=== PATIENT | female | born 1965 | race Caucasian/White ===

== ENCOUNTER 2024-05-28 09:57 | Outpatient (AMB) | payer BC, SELFPAY ==
--- NOTE | 2024-05-28 10:14 | MHC.OFFVIS ---
Vital Signs 05/28/24 10:16 Height 5 ft 3 in Weight 119 lb BMI 21.1 BP 138/74 Blood Pressure Location Lt brachial Position Sitting Respiration 16 Pulse 95 Pulse Source Pulse Oximeter Pulse Oximetry (%) 97 Oxygen Delivery Method Room Air Intake Visit Reasons: Cervical Radiculopathy Allergies No Known Allergies Allergy (Verified 05/28/24 10:17) Medication List - Last Reconciled 05/28/24 by Kitty Leung LPN carisoprodol 250 mg PO QID PRN levothyroxine 100 mcg PO DAILY trazodone 150 mg PO BEDTIME upadacitinib ER (Rinvoq) 15 mg PO DAILY HPI HPI Cervical Radiculopathy: Details: History of Present Illness The patient is a 58-year-old female presenting with cervical radiculopathy and pain. She reports a 2-year history of pain originating in her left neck, extending to the shoulder, and radiating towards the left occipital region and anterior chest. This pain began spontaneously without an apparent inciting event. It is described as an aching, stabbing, burning sensation, rated between 5 to 8/10 in intensity, and is exacerbated at night. The patient has experienced associated numbness and tingling in the left upper extremity, exacerbations of sharp dwumfcea-fnqvo-imvl sensations, and significant weakness in the left arm, leading to frequent dropping of items. She has undergone an MRI which revealed a large C6-7 disc herniation with compression of the C6 nerve root and has a history of problematic symptoms on the right that were once less severe. Treatment attempts include ecpm-ikd-ulvafjz medications, physical therapy, and a cortisone injection two years prior that provided temporary relief. 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 Pain Description - Aching pain in left neck extending to left shoulder and left occipital region - Burning and stabbing quality, with radiating sharp yhvcnera-rrfpw-vfkl sensations - Pain intensified at night and during activities involving neck and arm movement - Intensity rated 5 to 8/10 - Associated with numbness and tingling in left upper extremity - Weakness in left arm, resulting in dropping objects - Pain exacerbated by deep breathing and certain movements - Relief previously noticed with a cortisone injection two years ago Physical Exam - Musculoskeletal- Weakness noted in left upper extremity, specifically 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 - Limitation in cervical range of motion Results - MRI: Large C6-7 disc herniation with compression of C6 nerve root on the left side Pain Management - Affect: Pain causing significant employment and functional impairment, affecting psychological wellbeing - Analgesia: Currently taking Carisoprodol 250 mg, reporting mid-level pain score - Adverse Effects: Reported fatigue and discomfort from some medications, and past adverse reactions to gabapentin - Activities of Daily Living: Pain affects work performance and ability to perform daily tasks - Aberrant Drug Related Behaviors: Prefers not using prescription medications extensively due to previous family experiences [facility] Medical History (Updated 05/30/24 @ 12:05 by Facundo De Paz MD) Asthma Hypothyroidism Psoriasis Surgical History (Updated 05/30/24 @ 12:05 by Facundo De Paz MD) Status post ablation operation for arrhythmia Physical Exam Vital Signs: Last Vital Signs Pulse 95 05/28/24 10:16 Resp 16 05/28/24 10:16 BP 138/74 05/28/24 10:16 Pulse Ox 97 05/28/24 10:16 Oxygen Delivery Method Room Air 05/28/24 10:16 BMI result Body Mass Index 21.1 Assessment & Plan Assessment & Plan (1) Cervical radiculopathy: Code(s): M54.12 - Radiculopathy, cervical region Category: Medical Plan Plan - Interlaminar cervical epidural steroid injection, left parasagittal C6-7 - Refer to spine surgery for evaluation of potential cervical discectomy and/or fusion - Encourage continuation of home exercise program focusing on neck stretching and strengthening - Educate on self-directed C6-7 disc herniation exercises through online resources - Prescribe a one-time opioid prescription following protocol guidelines after turnover of Carisoprodol to the dispensing pharmacist Patient was informed and verbally consented to the use of an ambient scribe for clinic note documentation during this visit. Discussion Notes I discussed with the patient the diagnosis of cervical radiculopathy due to C6-7 disc herniation and associated nerve root compression. We reviewed the immediate plan for cervical epidural steroid injection to manage her symptoms and the potential need for surgical intervention, such as discectomy or fusion, if conservative treatment proves ineffective. We considered the risks and benefits of each option, emphasizing that surgery might be necessary for long-term relief if conservative treatment fails. I outlined non-invasive management, including home exercises to improve symptoms. The patient understands the course of action, including the risks of combining current medications with any new prescriptions, and agreed to the planned interventions. Patient Instructions - Undergo cervical epidural steroid injection on scheduled date - Refer to and consult with a spine surgeon to consider surgical options for relief - Continue recommended home exercises for stretching and strengthening - Search online for C6-7 disc herniation exercises and incorporate them into daily routine - Follow prescription guidelines carefully and bring any unused Carisoprodol to the pharmacy - Monitor symptoms and return if pain or weakness worsens - Take a day off after the injection to rest if necessary - Use pain management techniques such as cold/heat therapy as needed Coding Level of Care Code New Pt Level 4 (71232) Diagnoses Cervical radiculopathy M54.12
[2024-05-28 10:16] VITALS: BP 138/74; PULSE 95; RESP 16; O2SAT 97; BMI 21.1
== END 2024-05-28 11:01 | disposition home or self-care (01) ==
PROVIDERS: PCP Hospitalist; Referring Provider Psychiatry & Neurology Neurology; Visit Provider Internal Medicine
DX: M54.12 Radiculopathy, cervical region (principal)
CPT/HCPCS: 99204

== ENCOUNTER 2024-06-21 07:33 | Outpatient (REF) | payer BC, SELFPAY ==
--- NOTE | ~2024-06-21 | FL_ITS ---
EXAMINATION: FLUOROSCOPY GUIDANCE FOR NEEDLE PLACEMENT CLINICAL INFORMATION: M54.12 - Radiculopathy, cervical region COMPARISON: None available. TECHNIQUE: Fluoroscopic guidance for treatment. 2 images obtained in the region of the cervical spine. FINDINGS: Radiopaque instrument and radiopaque material in the cervical spine for fluoroscopy guidance. FLUOROSCOPY TIME: 0.1 minutes. DOSE AREA PRODUCT: 0.507 uGy-m2 (microgray-meter squared) FL/FL guidance in treatment room IMPRESSION: Nondiagnostic fluoroscopy guidance for treatment planning in the cervical spine. Please refer to the procedure note. Electronically signed by: Wesley Linares MD 06/21/2024 11:26 AM HARVEY
--- OUTSIDE RECORDS SUMMARY | 2024-06-21 07:36 | XMS_ITS | Patient Health Record ---
Author Organization [facility] Address [address] [place] [address] Care Team Providers Care Nuclear Medicine Technologist Name Role Phone TORRI CHAMPION Primary Care Provider [phone] Allergies Allergen (clinical drug ingredient) Drug/Non Drug Allergy documented on EMR Reaction Allergy Type Onset Date Status Tetanus Toxoids siezure Drug Allergy A ctive COVID-19 (mRNA) Vaccine Lung inflammation Drug Allergy Active Reason For Referral No Information Medications Medication SIG (Take, Route, Frequency, Duration) Notes Start Date End Date Status traZODone HCl 150 MG 1 tablet at bedtime Orally Once a day for 90 days Active Levothyroxine Sodium 25 MCG 1 tablet in the morning on an empty stomach Orally Once a day for 90 days Active Rinvoq 15 MG 1 tablet Orally Once a day Active Problems Problem Type SNOMED Code ICD Code Onset Dates Problem Status W/U Status Risk Notes Problem Hypothyroidism (50910224) Hypothyroidism, unspecified (E03.9) Active confirmed Problem Insomnia (195932783) Insomnia, unspecified (G47.00) Active confirmed Problem Psoriasis (5791199) Psoriasis, unspecified (L40.9) Active confirmed Problem Cervical radiculopathy (96002958) Radiculopathy, cervical region (M54.12) Active confirmed Problem 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) (6751171410) 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 Vital Signs Heart Rate 76 /min 05/30/2024 Temperature 97.4 degrees Fahrenheit 05/30/2024 Blood pressure diastolic 70 mm Hg 05/30/2024 Oximetry 95 % 05/30/2024 Height 5'3'' in 05/30/2024 Blood pressure systolic 110 mm Hg 05/30/2024 Weight 121.5 lbs 05/30/2024 BMI 21.52 kg/m2 05/30/2024 Encounters Encounter Location Date Provider Diagnosis [facility] [address] [place] [address] 05/30/2024 TORRI CHAMPION Psoriasis, unspecifi ed L40.9 ; Hypothyroidism, unspecified E03.9 ; Insomnia, unspecified G47.00 ; Encounter for screening for cardiovascular disorders Z13.6 ; Weight loss observed on examination R63.4 ; Other fatigue R53.83 ; Radiculopathy, cervical region M54.12 and Hixl-WDVMM-61 syndrome B94.8 Assessments Encounter Date Diagnosis (ICD Code) Assessment Notes Treatment Notes Treatment Clinical Notes Section Notes 05/30/2024 Hypothyroidism, unspecified (ICD-10 - E03.9) Elizabeth is 58 years old pleasant lady with psoriasis, hypothyroidism, insomnia, cervical radiculopathy and 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 Plan is as follows Hypothyroidism. Continue current regimen and check TCH test you for Insomnia. She is on trazodone 150 mg daily and she is doing fine Psoriasis/psoria tic arthritis. 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 It can be deconditioning, thyroid dysfunction, worsening of psoriasis, anxiety/depressi on, nutritional deficiencies, anemia. We will check inflammatory markers meanwhile she can take Tylenol arthritis as needed. Screening blood work ordered. She is up to date on a specific screening. 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 Plan is as follows Hypothyroidism. Continue current regimen and check TCH test you for Insomnia. She is on trazodone 150 mg daily and she is doing fine Psoriasis/psoria tic arthritis. 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 It can be deconditioning, thyroid dysfunction, worsening of psoriasis, anxiety/depressi on, nutritional deficiencies, anemia. We will check inflammatory markers meanwhile she can take Tylenol arthritis as needed. Screening blood work ordered. She is up to date on a specific screening. 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 Plan is as follows Hypothyroidism. Continue current regimen and check TCH test you for Insomnia. She is on trazodone 150 mg daily and she is doing fine Psoriasis/psoria tic arthritis. 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 It can be deconditioning, thyroid dysfunction, worsening of psoriasis, anxiety/depressi on, nutritional deficiencies, anemia. We will check inflammatory markers meanwhile she can take Tylenol arthritis as needed. Screening blood work ordered. She is up to date on a specific screening. 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 Plan is as follows Hypothyroidism. Continue current regimen and check TCH test you for Insomnia. She is on trazodone 150 mg daily and she is doing fine Psoriasis/psoria tic arthritis. 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 It can be deconditioning, thyroid dysfunction, worsening of psoriasis, anxiety/depressi on, nutritional deficiencies, anemia. We will check inflammatory markers meanwhile she can take Tylenol arthritis as needed. Screening blood work ordered. She is up to date on a specific screening. 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 Plan is as follows Hypothyroidism. Continue current regimen and check TCH test you for Insomnia. She is on trazodone 150 mg daily and she is doing fine Psoriasis/psoria tic arthritis. 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 It can be deconditioning, thyroid dysfunction, worsening of psoriasis, anxiety/depressi on, nutritional deficiencies, anemia. We will check inflammatory markers meanwhile she can take Tylenol arthritis as needed. Screening blood work ordered. She is up to date on a specific screening. 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 Plan is as follows Hypothyroidism. Continue current regimen and check TCH test you for Insomnia. She is on trazodone 150 mg daily and she is doing fine Psoriasis/psoria tic arthritis. 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 It can be deconditioning, thyroid dysfunction, worsening of psoriasis, anxiety/depressi on, nutritional deficiencies, anemia. We will check inflammatory markers meanwhile she can take Tylenol arthritis as needed. Screening blood work ordered. She is up to date on a specific screening. 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 Plan is as follows Hypothyroidism. Continue current regimen and check TCH test you for Insomnia. She is on trazodone 150 mg daily and she is doing fine Psoriasis/psoria tic arthritis. 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 It can be deconditioning, thyroid dysfunction, worsening of psoriasis, anxiety/depressi on, nutritional deficiencies, anemia. We will check inflammatory markers meanwhile she can take Tylenol arthritis as needed. Screening blood work ordered. She is up to date on a specific screening. 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 Plan is as follows Hypothyroidism. Continue current regimen and check TCH test you for Insomnia. She is on trazodone 150 mg daily and she is doing fine Psoriasis/psoria tic arthritis. 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 It can be deconditioning, thyroid dysfunction, worsening of psoriasis, anxiety/depressi on, nutritional deficiencies, anemia. We will check inflammatory markers meanwhile she can take Tylenol arthritis as needed. Screening blood work ordered. She is up to date on a specific screening. Plan Of Treatment Future Test Test Name Order Date Vitamin B12 and Folate-[id number] 05/30/2024 Lipase-[id number] 05/30/2024 CBC With Differential/Platelet-[id number] Sedimentation Gwzm-[id number] C-Reactive Protein, Quant-[id number] TSH+Free [id number] 05/30/2024 Lipid Panel-[id number] 05/30/2024 Comp. Metabolic Panel [id number] 2024 25-Hydroxyvitamin D LCMS D2+[id number] Next Appt Details Provider Name:Vicky muñoz, 07/11/2024 09:00:00 AM, [address] [place] [address], [id number], Insurance Providers Payer Name Payer Address Payer Phone Subscriber Number Group Number Insured Name Patient Relationship to Insured Coverage Start Date Coverage End Date [facility] [address] [place] [address] [id number] Lorenzo Posadas Self - patient is the insured Medical (General) History Medical History History ICD Code psoriasis Hypothyroidism Insomnia Cervical radiculopathy Post coronavirus 19 syndrome and she fol lows up with Dr. Beaulieu Surgical History Surgery Date(Month/Year) Ablation by Dr Dawson [address] Baig 2022 Lumbar Fusion L4-S1
--- OUTSIDE RECORDS SUMMARY | 2024-06-21 07:36 | XMS_ITS | Clinical Summary ---
Author Organization [facility] Address [address] [place] [address] Phone Care Team Providers Care Instructor Physical Name Role Phone Shruthi Mederos [employer] Primary Care Provider [phone] Encounters Date Type Department Care Team Description 05/10/2024 7:00 PM EST - 05/10/2024 11:59 PM EST Hospital Encounter [facility] MRI [address] [place] [address] Radiculopathy, cervical region Discharge Disposition: Home or Self Care from Last 3 Months Surgical History Surgery Date Site/Laterality Comments BACK SURGERY 2008 PROCEDURE: HISTORICAL BACK SURGERY; COMMENT: L5-S1 fusion. Dr Rosales BACK SURGERY PROCEDURE: HISTORICAL BACK SURGERY; COMMENT: Disc surgery x 2. Dr Quintero OTHER SURGICAL HISTORY Bilateral PROCEDURE: HISTORY OTHER; COMMENT: Breast implants Dr Ann OTHER SURGICAL HISTORY 2016 PROCEDURE: HISTORY OTHER; COMMENT: removal of breast implants Dr Ann OTHER SURGICAL HISTORY 2016 PROCEDURE: HISTORY OTHER; COMMENT: Liposuction Dr Ann COLONOSCOPY 05/12/2020 PROCEDURE: HISTORICAL COLONOSCOPY COLONOSCOPY 12/28/2011 PROCEDURE: HISTORICAL COLONOSCOPY Medical History Medical History Date Comments Aortic aneurysm (CMS/HCC) 07/16/2020 DX:Aor tic aneurysm (HCC); COMMENT: Aortic aneurysm Diverticulosis of colon 07/16/2020 DX:Diver ticulosis of colon MELISSA (generalized anxiety disorder) 07/16/2020 DX:MELISSA (generalized anxiety disorder) GERD (gastroesophageal reflux disease) DX:GERD (gastroesophageal reflux disease) Hallux valgus (acquired), right foot 07/16/2020 DX:Hallux valgus (acquired), right foot Hypercholesterolemia 07/16/2020 DX:Hypercho lesterolemia Hypertension 07/16/2020 DX:Hypertension Hypothyroidism 07/16/2020 DX:Hypothyroidis m Melanosis of colon 07/16/2020 DX:Melanosis of colon Rheumatoid arthritis of both wrists (CMS/HCC) 07/16/2020 DX:Rheumatoid arthritis of b oth wrists (HCC) Sleep disturbance 07/16/2020 DX:Sleep distu rbance SVT (supraventricular tachyc ardia) (CMS/HCC) 07/16/2020 DX:SVT (supraventricular tachycardia) ([facility]) Varicose veins of lower extremity 07/16/2020 DX:Varicose veins of lower extremity Cervical radiculopathy DX:Cervic al radiculopathy Urinary incontinence DX:Urinary incontinence Family History Medical History Relation Name Comments Abdominal Aortic Anuerysm (AAA) Brother Stroke Father COPD Heart attack Father's side 1 Aunt Abdominal Aortic Anuerysm (AAA) Father's side 2 2 Uncles [place] Lung cancer Mother Hyperlipidemia, Subclavian Steal, COPD,Anemia Other: Ruptured AAA Mother's side Aunt Relation Name Status Comments Brother Father Father's side 1 Aunt Alive Father's side 2 2 Uncles Mother Mother's side Aunt Social History Tobacco Use Types Packs/Day Years Used Date Smoking Tobacco: Never Smokeless Tobacco: Never Alcohol Use Standard Drinks/Week Comments Yes 4 (1 standard drink = 0.6 oz pur e alcohol) Comments Unknown Sex and Gender Information Value Date Recorded Sex Assigned at Not on file Legal Sex Female 6:51 PM EST Gender Identity Not on file Sexual Orientation Not on file Obstetrics History Last Filed Vital Signs Vital Sign Reading Time Taken Comments Blood Pressure 118/60 10/19/2023 2:45 PM EDT Sit ting L Arm Pulse 90 10/19/2023 2:45 PM EDT Temperature - - Respiratory Rate - - Oxygen Saturation - - Inhaled Oxygen Concentration - - Weight 56.7 kg (125 lb) 10/19/2023 2:45 PM EDT Height 160 cm (5' 3 ) 10/19/2023 2:45 PM EDT Body Mass Index 22.14 10/19/2023 2:45 PM EDT Plan of Treatment Health Maintenance Due Date Last Done Comments Breast Cancer Screening 1965 DTaP,Tdap,and Td Vaccines (1 - Tdap) 09/26/1983 Hepatitis B Vaccines (1 of 3 - 19+ 3-dose series) 09/26/1983 Cervical Cancer Screening: P ap Smear 1985 Zoster Vaccines (1 of 2) 2014 COVID-19 Vaccine (3 - Pfizer risk series) 10/27/2020 09/29/2020, 09/04/2020 Cholesterol Screening (Lipid Panel) 04/17/2022 Colorectal Cancer Screening: Colonoscopy 04/17/2022 Depression Screening 04/17/2022 HIV Screening 04/17/2022 Hepatitis C Screening 04/17/2022 Social Influencers of Health Screening 04/17/2022 Influenza Vaccine (#1) 2024 Hypertension/CHF/CAD Annual BMP Blood Test 10/18/2024 10/19/2023 RSV Immunization Patients 60 + Years Old (1 - 1-dose 75+ series) 09/26/2039 HIB Vaccines Aged Out No longer eligi ble based on patient's age to complete this topic HPV Vaccines Aged Out No longer eligi ble based on patient's age to complete this topic Hepatitis A Vaccines Aged Out No long er eligible based on patient's age to complete this topic IPV Vaccines Aged Out No longer eligi ble based on patient's age to complete this topic MMR Vaccines Aged Out No longer eligi ble based on patient's age to complete this topic Meningococcal ACWY Vaccine Aged Out N o longer eligible based on patient's age to complete this topic Pneumococcal Vaccine: Pediatrics (0 to 5 Years) and At-Risk Patients (6 to 64 Years) Aged Out No longer eligible b ased on patient's age to complete this topic RSV Immunization Patients Under 20 months Aged Out No longer eligible b ased on patient's age to complete this topic Varicella Vaccines Aged Out No longer eligible based on patient's age to complete this topic Procedures Procedure Name Priority Date/Time Associated Diagnosis Comments MR CERVICAL SPINE WO CONTRAST Routine 05/10/2024 7:57 PM EST Radiculopathy, cervical region from Last 3 Months Results * MR Cervical Spine wo Contrast (05/10/2024 7:57 PM EST) Anatomical Region Laterality Modality C-spine, Spine Magnetic Resonan ce 05/17/2024 9:53 AM EST Impressions 05/17/2024 9:57 AM EST New small left paracentral/foraminal protrusion at C6-7 resulting in mild left foraminal stenosis and contacting the exiting left C7 nerve. -------- FINAL REPORT -------- Dictated By: TAWANA THORNTON Dictated Date: 05/17/2024 09:53 ET Assigned Physician: TAWANA THORNTON Reviewed and Electronically Signed By: TAWANA THORNTON Signed Date: 05/17/2024 09:57 ET Workstation ID: [id number] Transcribed By: Self Edit Transcribed Date: 05/17/2024 09:53 ET Narrative 05/17/2024 9:57 AM EST PROCEDURE: Cervical spine MRI INDICATION: Left radiculopathy TECHNIQUE: Multiplanar, multisequence MRI of the Cervical spine Without contrast. COMPARISON: ??02/02/2022 FINDINGS: Mild retrolisthesis at C5-6, likely degenerative. No fracture or suspicious marrow replacing lesion. Multilevel degenerative loss of normal disc height and signal with associated degenerative discogenic endplate change, most pronounced at C5-6 and C6-7. Cervical facet arthritis most pronounced on the left at C2-3 and C3-4. Cervical cord is normal in signal and morphology. ??No epidural collection or mass is significant spinal canal. Paraspinal muscles are normal. ??Foramen magnum is normal. Findings by level: C2-C3: No focal disc protrusion, foraminal stenosis, or spinal canal stenosis. C3-C4: Left uncovertebral spur results in mild left and no right foraminal stenosis. ??No spinal canal stenosis. C4-C5: No focal disc protrusion, foraminal stenosis, or spinal canal stenosis. C5-C6: Posterior disc osteophyte complex and bilateral uncovertebral spurring results in moderate right and no left foraminal stenosis. ??Mild spinal canal stenosis. ??Findings are similar compared to prior. C6-C7: Left paracentral/foraminal protrusion measures 3 x 6 mm and contacts the exiting left C7 nerve. ??Mild left foraminal stenosis. ??No right foraminal stenosis. ??No spinal canal stenosis. C7-T1: No focal disc protrusion, foraminal stenosis, or spinal canal stenosis. Procedure Note Tawana Thornton MD - 05/17/2024 PROCEDURE: Cervical spine MRI INDICATION: Left radiculopathy TECHNIQUE: Multiplanar, multisequence MRI of the Cervical spine Withoutcontrast. COMPARISON: 02/02/2022 FINDINGS: Mild retrolisthesis at C5-6, likely degenerative. No fracture or suspicious marrow replacing lesion. Multilevel degenerative loss of normal disc height and signal withassociated degenerative discogenic endplate change, most pronounced atC5-6 and C6-7. Cervical facet arthritis most pronounced on the left at C2-3 and C3-4. Cervical cord is normal in signal and morphology. No epidural collectionor mass is significant spinal canal. Paraspinal muscles are normal. Foramen magnum is normal. Findings by level: C2-C3: No focal disc protrusion, foraminal stenosis, or spinal canalstenosis. C3-C4: Left uncovertebral spur results in mild left and no right foraminalstenosis. No spinal canal stenosis. C4-C5: No focal disc protrusion, foraminal stenosis, or spinal canalstenosis. C5-C6: Posterior disc osteophyte complex and bilateral uncovertebralspurring results in moderate right and no left foraminal stenosis. Mildspinal canal stenosis. Findings are similar compared to prior. C6-C7: Left paracentral/foraminal protrusion measures 3 x 6 mm andcontacts the exiting left C7 nerve. Mild left foraminal stenosis. Noright foraminal stenosis. No spinal canal stenosis. C7-T1: No focal disc protrusion, foraminal stenosis, or spinal canalstenosis. IMPRESSION: New small left paracentral/foraminal protrusion at C6-7 resulting in mildleft foraminal stenosis and contacting the exiting left C7 nerve. -------- FINAL REPORT -------- Dictated By: TAWANA THORNTON Dictated Date: 05/17/2024 09:53 ET Assigned Physician: TAWANA THORNTON Reviewed and Electronically Signed By: TAWANA THORNTON Signed Date: 05/17/2024 09:57 ET Workstation ID: [id number] Transcribed By: Self Edit Transcribed Date: 05/17/2024 09:53 ET us Carmen Liz MD IMG MRI PROCEDURES Final Result from Last 3 Months Care Teams Instructor Physical Relationship Specialty Start Date End Date Shruthi Mederos, [employer] [address] [facility] [address] PCP - General Internal Medicine 12/01/20
--- OUTSIDE RECORDS SUMMARY | 2024-06-21 07:36 | XMS_ITS ---
Author Organization [facility] Address [address] [place] [address] Care Team Providers Care Frit Mixer And Burner Name Role Phone TORRI CHAMPION Primary Care Provider Allergies Allergen (clinical drug ingredient) Drug/Non Drug Allergy documented on EMR Reaction Allergy Type Onset Date Status Tetanus Toxoids siezure Drug Allergy A ctive COVID-19 (mRNA) Vaccine Lung inflammation Drug Allergy Active REASON FOR VISIT new patient Medications Medication SIG (Take, Route, Frequency, Duration) Notes Start Date End Date Status Levothyroxine Sodium 25 MCG 1 capsule in the morning on an empty stomach Orally Once a day for 90 days Active traZODone HCl 150 MG 1 tablet at bedtime Orally Once a day for 90 days Active Rinvoq 15 MG 1 tablet Orally Once a day Active Problems Problem Type SNOMED Code ICD Code Onset Dates Problem Status W/U Status Risk Notes Problem Psoriasis (1119305) Psoriasis, unspecified (L40.9) Active confirmed Problem Hypothyroidism (07843184) Hypothyroidism, unspecified (E03.9) Active confirmed Problem Insomnia (452354779) Insomnia, unspecified (G47.00) Active confirmed Problem Cervical radiculopathy (22695131) Radiculopathy, cervical region (M54.12) Active confirmed Problem 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) (5942489953) 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 Vital Signs Temperature 97.4 degrees Fahrenheit 05/30/19 25 Oximetry 95 % 05/30/2024 Heart Rate 76 /min 05/30/2024 Blood pressure systolic 110 mm Hg 05/30/19 25 Blood pressure diastolic 70 mm Hg 025 Weight 121.5 lbs 05/30/2024 BMI 21.52 kg/m2 05/30/2024 Height 5'3'' in 05/30/2024 Encounters Encounter Location Date Provider Diagnosis [facility] [address] [place] [address] 05/30/2024 TORRI CHAMPION Psoriasis, unspecifi ed L40.9 ; Hypothyroidism, unspecified E03.9 ; Insomnia, unspecified G47.00 ; Encounter for screening for cardiovascular disorders Z13.6 ; Weight loss observed on examination R63.4 ; Other fatigue R53.83 ; Radiculopathy, cervical region M54.12 and Mzul-BBTYJ-64 syndrome B94.8 Assessments Encounter Date Diagnosis (ICD Code) Assessment Notes Treatment Notes Treatment Clinical Notes Section Notes 05/30/2024 Psoriasis, unspecified (ICD-10 - L40.9) Elizabeth [...] Psoriasis/psoria tic arthritis. She follows up with active directory administrator and she is stable Fatigue and tiredness. It can be deconditioning, thyroid dysfunction, worsening of psoriasis, anxiety/depressi on, nutritional deficiencies, anemia. We will check inflammatory markers meanwhile she can take Tylenol arthritis as needed. Screening blood work ordered. She is up to date on a specific screening. 05/30/2024 Hypothyroidism, unspecified (ICD-10 - E03.9) Elizabeth [...] Psoriasis/psoria tic arthritis. She follows up with active directory administrator and she is stable Fatigue and tiredness. [...] Psoriasis/psoria tic arthritis. She follows up with active directory administrator and she is stable Fatigue and tiredness. [...] Psoriasis/psoria tic arthritis. She follows up with active directory administrator and she is stable Fatigue and tiredness. [...] Psoriasis/psoria tic arthritis. She follows up with active directory administrator and she is stable Fatigue and tiredness. [...] Psoriasis/psoria tic arthritis. She follows up with active directory administrator and she is stable Fatigue and tiredness. [...] Psoriasis/psoria tic arthritis. She follows up with active directory administrator and she is stable Fatigue and tiredness. It can be deconditioning, thyroid dysfunction, worsening of psoriasis, anxiety/depressi on, nutritional deficiencies, anemia. We will check inflammatory markers meanwhile she can take Tylenol arthritis as needed. Screening blood work ordered. She is up to date on a specific screening. 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 Plan is as follows Hypothyroidism. Continue current regimen and check TCH test you for Insomnia. She is on trazodone 150 mg daily and she is doing fine Psoriasis/psoria tic arthritis. She follows up with active directory administrator and she is stable Fatigue and tiredness. It can be deconditioning, thyroid dysfunction, worsening of psoriasis, anxiety/depressi on, nutritional deficiencies, anemia. We will check inflammatory markers meanwhile she can take Tylenol arthritis as needed. Screening blood work ordered. She is up to date on a specific screening. Plan Of Treatment Medication Medication Name Sig Start Date Stop Date Notes Levothyroxine Sodium 25 MCG 1 capsule in the morning on an empty stomach Orally Once a day for 90 days traZODone HCl 150 MG 1 tablet at bedtime Orally Once a day for 90 days Future Test Test Name Order Date Vitamin B12 and Folate-182212 05/30/2024 Lipase-751902 05/30/2024 CBC With Differential/Platelet-803542 Sedimentation Kiln-Tnzdskqmuf-638795 C-Reactive Protein, Quant-880878 025 TSH+Free T4-363143 05/30/2024 Lipid Panel-021014 05/30/2024 Comp. Metabolic Panel (14)-[id number] 2024 25-Hydroxyvitamin D LCMS D2+D3-587649 Next Appt Details Follow Up: 6 Weeks- Henrry KRISHNAN on: Provider Name:Vicky muñoz, 07/11/2024 09:00:00 AM, [address] [place] [address], [id number], Progress Notes * Lorenzo POSADAS EDOB: [birth year] (58 yo F)Acc No.[id number]:05/30/2024 Progress Notes Patient:?Lorenzo POSADAS Provider:?TORRI CHAMPION MD :1965???Age:58 Y???Sex:Female D ate:05/30/2024 Phone: Address:[address] [place] [address] Subjective: * Chief Complaints: * ???New patient * HPI: ???Internal Medicine:? Elizabeth is 58 years old pleasant lady with hypothyroidism, insomnia, psoriasis is here today to establish care.? She is in her usual state of health.? Her weight is stable, appetite is good.? No systemic or constitutional symptoms.? No side effects with the medication.? No other active issues or concerns. * ROS:?General/Constitutional:?Overall health?Good.?Change in appetite?denies.?Chills?denies.?Fatigue?admits.?Fever?denies.?Night sweats?denies.?Sleep disturbance?denies.?Weight gain?denies.?Weight loss?denies.?Neurologic:?Patient denies?balance difficulty, difficulty speaking, dizziness.?Difficulty speaking?denies.?Dizziness?denies.?Gait abnormality?denies.?Headache?denies.?Loss of strength?denies.?Memory loss?denies.?Seizures?denies.?Tingling/Numbness?denies .?Ophthalmologic:?Blurred vision?denies.?Discharge?denies.?Dry eye?denies.?Red eye?denies.?ENT:?Change in Voice?Denies.?Cold Symptoms?Denies.?Cough?Denies.?Dizziness?Denies.?Nasal Congestion?Denies.?Otalgia?Denies.?postnasal drip?Denies.?Blocked ear?denies.?Nosebleed?denies.?Snoring?denies.?Cardiovascular:?Diaphoresis?Denies.?Pedal Edema?Denies.?PND (Paroxsymal nocturnal dyspnea)?Denies.?Chest pain?denies.?Difficulty laying flat?denies.?Dyspnea on exertion?denies.?Heart murmur?denies.?Orthopnea?denies.?Respiratory:?Asthma?denies.?Cough?denies.?Shortness of breath with exertion?denies.?Sputum production?denies.?Wheezing?denies.?Gastrointestinal:?Change in bowel habits?denies.?Constipation?denies.?Decreased appetite?denies.?Diarrhea?denies.?Heartburn?denies.?Nausea?denies.?Vomiting?kaushal es.?Musculoskeletal:?tingling/numbness?Denies.?myalgias?Denies.?Joint Swelling?Denies.?extremeties?normal.?Arthritis?,admits.?Back problems?,admits.?Carpal tunnel?denies.?Joint stiffness?denies.?Muscle aches?denies.?Endocrine:?Bowel Changes?Denies.?Breast Discharge?Denies.?poor libido?Denies.?Cold intolerance?denies.?Excessive sweating?denies.?Excessive thirst?denies.?Frequent urination?denies.?Thyroid problems?denies.?Skin:?Bruising?Denies.?Eczema?denies.?Hair changes?denies.?Rash?denies.?Skin lesion(s)?denies.?Psychiatric:?Anxiety?denies.?Depressed mood?denies.?Difficulty sleeping?denies.?Nervous breakdown?denies.?Substance abuse?denies.?Urology:?abnormal menstrual bleeding?denies.?blood in urine?denies.?burning on urination?denies.?difficulty urinating?denies.?discharge?denies.?dysuria?denies.? * Medical History:? * OB History:?Total pregnancies?4.?Total living children?4.? * Surgical History:?Ablation b y Dr Dawson 2022Left thumb surgery Dr Baig 2022Lumbar Fusion L4-S1 * Hospitalization/Major Diagno stic Procedure:? * Family History:?Father: caitlin ng, diagnosed with Hypertension, Heart Disease, Stroke, Diabetes.?Mother: , diagnosed with Cancer.? * Social History:?Miscellaneous:?Exercise: Patient exercises. ?Living with: spouse. ?Marital status: . ?Occupation: Works full-time-. ???Non smoker ETOH Rarely. * Medications:?TakingLevothyro xine Sodium 100 MCG Capsule 1 capsule in the morning on an empty stomach Orally Once a day traZODone HCl 150 MG Tablet 1 tablet at bedtime Orally Once a day Rinvoq 15 MG Tablet Extended Release 24 Hour 1 tablet Orally Once a day Medication List reviewed and reconciled with the patientTaking Levothyroxine Sodium 100 MCG Capsule 1 capsule in the morning on an empty stomach Orally Once a day Taking traZODone HCl 150 MG Tablet 1 tablet at bedtime Orally Once a day Taking Rinvoq 15 MG Tablet Extended Release 24 Hour 1 tablet Orally Once a day Medication List reviewed and reconciled with the patient * Allergies:?COVID-19 (mRNA) V accine: Lung inflammation - Side EffectsTetanus Toxoids: siezure - Side Effects Objective: * Vitals:?Temp:97.4F, Oxygen s at %:95%, HR:76/min, BP:110/70mm Hg, Wt:121.5lbs, BMI:21.52Index, Ht: 5'3''. * Examination: ???General Examination: ?Psychiatry?Normal.?GENERAL APPEARANCE:?Well developed, well nourished, in no acute distress.?MUSCULOSKELETAL:?Normal.?HEAD:?Normocephalic, atraumatic.?EYES:?Pupils equal, round, reactive to light and accommodation, sclera non-icteric.?EARS:?Normal.?ORAL CAVITY:?Normal.?THROAT:?Clear.?OROPHARYNX?Normal.?SINUSES?Normal.?NECK/THYROID:?Neck supple, full range of motion, no cervical lymphadenopathy.?SKIN:?Warm and dry, no suspicious lesions.?HEART:?S1, S2 normal regular rate and rhythm no murmurs, rubs, gallops .?LUNGS:?clear anteriorly and posteriorly good air movement no wheezes, rales, rhonchi .?BREASTS:?__.?ABDOMEN:?Soft, nontender, nondistended, bowel sounds present, normal.?EXTREMITIES:?Normal.?PERIPHERAL PULSES:?Normal.?NEUROLOGIC:?Nonfocal,? appropriate?motor strength normal upper and lower extremities, sensory exam intact.?FEMALE GENITOURINARY:?__.?MALE GENITOURINARY:?__.?PODIATRIC:?Normal.?Small Animal Caretaker? .? Assessment: * Assessment: 1.?Psoriasis, unspecified - L40.9 (Primary)???2.?Hypothyroidism, unspecified - E03.9???3.?Insomnia, unspecified - G47.00???4.?Encounter for screening for cardiovascular disorders - Z13.6???5.?Weight loss observed on examination - R63.4???6.?Other fatigue - R53.83???7.?Radiculopathy, cervical region - M54.12???8.?Pxue-EPWHV-68 syndrome - B94.8??? 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 Plan is as follows Hypothyroidism.? Continue current regimen and check TCH test you for Insomnia.? She is on trazodone 150 mg daily and she is doing fine Psoriasis/psoriatic arthritis.? She follows up with active directory administrator and she is stable Fatigue and tiredness.? It can be deconditioning, thyroid dysfunction, worsening of psoriasis, anxiety/depression, nutritional deficiencies, anemia.? We will check inflammatory markers meanwhile she can take Tylenol arthritis as needed. Screening blood work ordered.? She is up to date on a specific screening. Plan: * Treatment: 2.?Encounter for screening f or cardiovascular disorders?LAB: Comp. Metabolic Panel [id number] (Ordered for 05/30/2024) ?LAB: Lipid Panel-888914 (Ordered for 05/30/2024) 3.?Weight loss observed on e xamination?LAB: CBC With Differential/Platelet-352182 (Ordered for 05/30/2024) ?LAB: Lipase-154526 (Ordered for 05/30/2024) ?LAB: Sedimentation Aopz-Iyiquucukb-047681 (Ordered for 05/30/2024) 4.?Other fatigue?LAB: 25-Hydroxyvitamin D LCMS D2+D3-402217 (Ordered for 05/30/2024) ?LAB: Vitamin B12 and Folate-816857 (Ordered for 05/30/2024) ?LAB: C-Reactive Protein, Quant-318874 (Ordered for 05/30/2024) 5.?Others? Refill traZODone HCl Tablet, 150 MG, 1 tablet at bedtime, Orally, Once a day, 90 days, 90 Tablet, Refills 2;?Refill Levothyroxine Sodium Capsule, 25 MCG, 1 capsule in the morning on an empty stomach, Orally, Once a day, 90 days, 90 Capsule, Refills 2.?? * Procedure Codes:?3078F DIAST BP < 80 MM GC9637B SYST BP LT 130 MM HG * Preventive Medicine:?COvid- No because SE Flu- No Shingrix-? Pneumonia- Mammogram- 04/01 Box Brander- Done 2023 Colonoscopy- 2019- year plan- [facility] side Derm. * Follow Up:?6 Weeks- AW * * Sign off status: Completed true * Provider:?TORRI CHAMPION MD Date:?05/30 Generated for Monica roberts/Wing/Mikeitting on:?06/21/2024 07:35 AM EST History and Physical Notes * HPI (History of Present Illness) Category Sub-Category Detail Notes Category Not es Internal Medicine Elizabeth is 58 years old pleasant lady with hypothyroidism, insomnia, psoriasis is here today to establish care. She is in her usual state of health. Her weight is stable, appetite is good. No systemic or constitutional symptoms. No side effects with the medication. No other active issues or concerns Examination Category Sub-Category Detail Notes Category Not es General Examination GENERAL APPEARANCE: Well dev eloped, well nourished, in no acute distress HEAD: Normocephalic, atrau matic EYES: Pupils equal, round, reactive to light and accommodation, sclera non-icteric EARS: Normal THROAT: Clear NECK/THYROID: Neck supple, full ra nge of motion, no cervical lymphadenopathy HEART: S1, S2 normal regula r rate and rhythm no murmurs, rubs, gallops LUNGS: clear anteriorly and posteriorly good air movement no wheezes, rales, rhonchi ABDOMEN: Soft, nontender, non distended, bowel sounds present, normal NEUROLOGIC: Nonfocal, appropriat e motor strength normal upper and lower extremities, sensory exam intact SKIN: Warm and dry, no marquise picious lesions EXTREMITIES: Normal PERIPHERAL PULSES: Normal BREASTS: __ MUSCULOSKELETAL: Normal MALE GENITOURINARY: __ FEMALE GENITOURINARY: __ ORAL CAVITY: Normal PODIATRIC: Normal Psychiatry Normal OROPHARYNX Normal SINUSES Normal Small Animal Caretaker
== END 2024-06-21 07:34 | disposition home or self-care (01) ==
LOC: CF 07:33
PROVIDERS: Visit Provider Internal Medicine
DX: M54.12 Radiculopathy, cervical region (principal)
CPT/HCPCS: 62321; J1100; J2003; Q9967

== ENCOUNTER 2024-06-21 09:38 | Outpatient (AMB) | payer BC, SELFPAY ==
[2024-06-21 10:01] VITALS: BP 94/69; PULSE 70; O2SAT 100; BMI 21.1
--- NOTE | 2024-06-21 10:01 | A.OFFVIS_ITS ---
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 Denies any recent cough, cold, infection, fever or other significant changes in medical history since last office visit. COUNTS INCLUDE 234 BEDS AT [facility] Medical History (Updated 05/30/24 @ 12:05 by Facundo De Paz MD) Asthma Hypothyroidism Psoriasis Surgical History (Updated 05/30/24 @ 12:05 by Facundo De Paz MD) Status post ablation operation for arrhythmia Physical Exam Vital Signs: Last Vital Signs Pulse 70 06/21/24 10:01 BP 94/69 06/21/24 10:01 Pulse Ox 100 06/21/24 10:01 Oxygen Delivery Method Room Air 06/21/24 10:01 BMI result Body Mass Index 21.1 Office Procedures AMB Joint Injection/Aspiration Joint Injection/Aspiration Details: Interlaminar epidural steroid injection, C6/7, Left parasaggital After obtaining written consent, pre-procedure blood pressure and heart rate were stable and recorded in the nursing record. The patient was placed in the prone position. The cervicothoracic area was wi jamari prepped with chloraprep and draped in sterile fashion. Fluoroscopic guidance was used to identify the desired interlaminar space and for needle placement. Subcutaneous 0.5% lidocaine was used to anesthetize the skin overlying the target. A 20-gauge Ingram needle was advanced to the epidural space using loss of resistance to contrast technique under fluoroscopic AP and contralateral oblique views. There was no evidence of heme or CSF and no paresthesias were elicited with needle placement. Confirmation of epidural needle placement was performed with 1cc of omnipaque 180. Next 3 ml 0.5% lido chin mixed with 10 mg Dexamethasone was administered epidurally with no pain elicited on injection. The needle tract tubing was then cleared with 1 ml of 0.5% lidocaine. The needle was removed, skin cleansed and a sterile bandage was applied. The patient tolerated the procedure well and no complications were encountered. Following the procedure the patient's vital signs were stable. The patient was discharged home in good condition with post-procedural instructions. Time Out: Immediately prior to the procedure, the following was verbally confirmed that there is a signed consent form and that the correct patient, planned procedure, site and side are consistent with documentation and that necessary equipment and/or blood products are available prior to the start of the case. Complications: none EBL: <2 cc Coding 67544 - Cervical Epidural/Interlaminar with fluoroscopy Procedure code (CPT) selection complete Assessment & Plan Assessment & Plan (1) Cervical radiculopathy: Code(s): M54.12 - Radiculopathy, cervical region Category: Medical Plan Patient is status post C6-7 interlaminar MARANDA. Patient tolerated procedure well and was discharged home in stable condition with discharge instructions. All questions were answered. We will follow-up via telephone or in clinic to assess response to therapy. A follow-up appointment was made during today's visit. Orders: Orders FL guidance in treatment room Today M54.12 - Radiculopathy, cervical region Coding Level of Care Code Procedure Only Diagnoses Cervical radiculopathy M54.12 CPT Codes Coding - Joint 10: 91236 - Cervical Epidural/Interlaminar with fluoroscopy ([id number])
--- OUTSIDE RECORDS SUMMARY | 2024-06-21 10:10 | XMS_ITS | Clinical Summary ---
Author Organization [facility] Address [address] [place] [address] Phone Care Team Providers Care Field Aide Name Role Phone Shruthi Mederos JUVENILE PROBATION OFFICER Primary Care Provider [phone] Encounters Date Type Department Care Team Description 05/10/2024 7:00 PM EST - 05/10/2024 11:59 PM EST Hospital Encounter [facility] MRI [address] [place] [address] Radiculopathy, cervical region Discharge Disposition: [...] tachyc ardia) (CMS/HCC) 07/16/2020 DX:SVT (supraventricular tachycardia) ([facility]) Varicose veins of lower extremity 07/16/2020 DX:Varicose veins of lower extremity Cervical radiculopathy DX:Cervic al radiculopathy Urinary incontinence DX:Urinary incontinence Family History Medical History Relation Name Comments Abdominal Aortic Anuerysm (AAA) Brother Stroke Father COPD Heart attack Father's side 1 Aunt Abdominal Aortic Anuerysm (AAA) Father's side 2 2 Uncles [place] Lung cancer Mother Hyperlipidemia, Subclavian Steal, COPD,Anemia [...] Cervical Cancer Screening: P ap Smear 1985 Pneumococcal Vaccine: 50+ Years (1 of 1 - PCV) 2014 Zoster Vaccines (1 of 2) 2014 COVID-19 [...] patient's age to complete this topic Meningococcal B Vacine Aged Out No lo nger eligible based on patient's age to complete [...] Signed Date: 05/17/2024 09:57 ET Workstation ID: [id number] Transcribed By: Self Edit Transcribed Date: 05/17/2024 [...] Signed Date: 05/17/2024 09:57 ET Workstation ID: [id number] Transcribed By: Self Edit Transcribed Date: 05/17/2024 09:53 ET Carmen Liz MD IMG MRI PROCEDURES Final Result from Last 3 Months Care Teams Field Aide Relationship Specialty Start Date End Date Shruthi Mederos, JUVENILE PROBATION OFFICER [address] [place] [address] [address] PCP - General Internal Medicine 12/01/20
== END 2024-06-21 10:35 | disposition home or self-care (01) ==
LOC: HO.PMCPRC 09:38
PROVIDERS: PCP Hospitalist; Visit Provider Internal Medicine
DX: M54.12 Radiculopathy, cervical region (principal)
CPT/HCPCS: 62321